=== PATIENT | female | born 1985 | race Caucasian/White ===

== ENCOUNTER 2017-04-21 18:53 | Emergency (ER) | payer OTHER ==
[~2017-04-21] VITALS: Ht 157.5 cm; Wt 68.4 kg
[2017-04-21 19:00] VITALS: Ht 157.5 cm; Wt 68.4 kg
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
[2017-04-21] MEDS ORDERED: OPTIRAY 320 IV PRN (21:00)
[2017-04-21 21:18] LABS: ISTAT CREATININE 0.8 mg/dl (0.6-1.3); ISTAT HEMOGLOBIN 15.3 g/dl (12.0-16.0); ISTAT IONIZED CALCIUM 1.2 mmol/l (1.12-1.32)
[2017-04-21 21:29] VITALS: BP 146/101; PULSE 81; O2SAT 100
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
[2017-04-21] MEDS ORDERED: CLR10 PO (21:47)
[2017-04-21] MEDS ORDERED: CETI10TA84 PO (21:47)
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
== END 2017-04-21 22:10 | disposition home or self-care (01) ==
LOC: C.EDB 18:55 → C.EDD 22:10
DX: S22.42XA Multiple fractures of ribs, left side, initial encounter for closed fracture (principal); Y04.0XXA Assault by unarmed brawl or fight, initial encounter; Y92.9 Unspecified place or not applicable